=== PATIENT | male | born 1960 | race Caucasian/White ===

== ENCOUNTER 2016-12-22 07:25 | Inpatient (IN) ==
[2016-12-22] MEDS ORDERED: SODIUM CL FOR INHALATION 15 ML NEB NEB ONE (07:39)
[2016-12-22 07:58] LABS: BASOPHILS # (AUTO) 0.05 10*3/UL; BASOPHILS % (AUTO) 0.4 % (0-1); EOSINOPHILS # (AUTO) 0.07 10*3/UL; EOSINOPHILS % (AUTO) 0.6 % (0-8); Hemoglobin [HGB] 16.9 g/dL (14.0-18.0); LYMPHOCYTES # (AUTO) 0.68 10*3/uL; MEAN CORPUSCULAR HEMOGLOBIN 32.1 PG (27-31); MEAN CORPUSCULAR HGB CONC 33.8 g/dL (33-37); MEAN CORPUSCULAR VOLUME 94.9 FL (80-90); MEAN PLATELET VOLUME 9.3 FL (7.4-12.2); MONOCYTES # (AUTO) 0.74 10*3/UL (0.3-0.8); NEUTROPHILS # (AUTO) 10.79 10*3/UL; NEUTROPHILS % (AUTO) 87.2 % (50-80); RED BLOOD COUNT 5.27 10^6/uL (4.70-6.10)
[2016-12-22] MEDS: NORMAL SALINE 10 ML SYRINGE FLUSH IVP PRN ×3 (07:58→09:34)
[2016-12-22 08:05] LABS: BLOOD UREA NITROGEN 7 mg/dL (7-22); BUN/CREATININE RATIO 7.77 (6-20); SERUM ALBUMIN 4.7 g/dL (3.5-4.8)
[2016-12-22 08:09] LABS: MAGNESIUM 1.8 mg/dL (1.6-2.4); PLATELET MORPHOLOGY COMMENT NORMAL MORPHOLOGY (NORM); RBC MORPHOLOGY COMMENT NORMAL MORPHOLOGY (NORM); WBC MORPHOLOGY COMMENT NORMAL MORPHOLOGY (NORM)
[2016-12-22] MEDS ORDERED: Ertapenem Inj 1 GM in Sodium Chloride 0.9% 100 ML IV ONE (08:33)
--- NOTE | 2016-12-22 09:00 | PDOC ---
Dyspnea HPI - General Chief Complaint: Dyspnea Stated Complaint: ACUTE SOB/HEADACHE AND COUGH Date Seen by Provider: 12/22/16 Time Seen by Provider: 07:30 Source: POSITIVE: Patient, Old records Exam Limitations: POSITIVE: No limitations Treatment Prior to Arrival: REPORTS: None Nurse's Notes Reviewed & Considered: Yes - History of Present Illness Initial Comments: The patient is a 56-year-old male. He states that early this morning he was awakened by a cough. He also felt short of breath. Patient took his oxygen saturations and states that he thought it was between 72 and 77%. Past medical history is significant in that patient had a severe pneumonia in 2014 resulting in a large empyema on the left. He was treated at this facility for septic shock with intubation and chest tube drainage of a left empyema. [place] [facility]. He had some type of surgery to the left lung; we are attempting to get [place] [facility] [place]. He required tracheostomy and then a prolonged period of rehabilitation. He states that while in rehabilitation he developed "fluid around the heart" and he states that "they tried to drain it, and punctured my heart ". He has a history of deep venous thrombosis and pulmonary emboli and is on warfarin, probably 10 mg alternated with 5 mg every other day. He also has a history of hypertension and is on medication for this. Patient states he does not smoke but he chews tobacco. He apparently has a oxygen saturation device at home and monitors his oxygen saturation; he states his oxygen saturation normally is between 92 and 94%, and this morning his oxygen saturation as determined by him at home was as above. Patient complains of a headache. He denies any chest pain. No hemoptysis. He does have a productive cough. Body Location Affected: REPORTS: Chest Timing: REPORTS: Upon Awakening Duration: <24 hours Severity: Moderate Quality: REPORTS: "Pain" (Headache, circumferential) Initiating Event: DENIES: Upper Respiratory Illness, Out of Medications, Sports , Exercise, Aspiration, Choking, Allergy, Exposure - Smoke, Exposure - Mold, Exposure - Other Allergen Context: REPORTS: Other (Was awakened from sleep with cough and shortness of breath) Exacerbated By: REPORTS: Exertion, Coughing Associated Symptoms: DENIES: Fever, Chills, Sweating, Chest Pain, Chest Discomfort, Left Chest, Right Chest, Central Chest, Chest Heaviness, Chest Tightness, Painful Breathing, Radiation to Back, Radiation to Jaw, Radiation to Arm, Bloody Cough, Productive Cough, Heart Racing, Leg Pain, Calf Pain, Ankle Swelling, Leg Swelling, Dizziness, Light-Headedness, Anxiety, Tingling - Hands, Tingling - Face, Muscle Spasms - Hands, Muscle Spasms - Feet Similar Symptoms Previously: Yes Recently seen/treated/hospitalized: No Any Prior Injuries Related to Current Complaint?: No - Patient Home Medications Home Medications: Home Medications Warfarin Sodium [Coumadin] 5 mg PO .QOD 09/27/12 Nebivolol HCl [Bystolic] 5 mg PO DAILY tab 11/22/12 Warfarin Sodium 2.5 mg PO .QOD 12/22/16 - Patient Allergies Allergies/Adverse Reactions: Allergies 3 Allergy/AdvReac Type Severity Reaction Status Date / Time Penicillins Allergy NOT Verified 12/22/16 07:37 SURE/LONG TIME AGO Past Medical History - heen HEENT History: Denies History Additional HEENT History: JAMEE D/T PT CONDTION Cardiovascular History: Hypertension, DVTs, Other (please comment) Additional Cardiovasular History: PUNCTURED HEART DURING LUNG PROCEDURE 2014. "I TWICE" Respiratory History: Denies History, Pulmonary Embolism Additional Respiratory History: HOME O2 IN 2015 AFTER EMPYEMA AND TENSION PNEUMO. HX TRACH 2015 Gastrointestinal History: Denies History Additional Gastrointestinal History: EPIGASTRIC PAIN PRIOR TO PE/ DVT. DISCOVERED CLOT BROKE OFF AND WENT TO LUNG AND STOMACH Genitourinary History: Denies History Additional Genitourinary History: JAMEE D/T PT CONDTION Endocrine History: Denies History Additional Endocrine History: JAMEE D/T PT CONDTION Musculoskeletal History: Denies History Prosthesis or Implant: No Additional Musculoskeletal History: JAMEE D/T PT CONDTION Neurological History: Denies History Additional Neurological History: JAMEE D/T PT CONDTION Blood Disorders: Clotting Disorders Additional Blood Disorders History: DVT'S/ PE Psychiatric History: Denies History Additional Psychiatric History: JAMEE D/T PT CONDTION History of Sexually Transmitted Diseases: (JAMEE D/T PT CONDTION) Cancer History: Denies History In Past Year Been Physically Harmed or Verbally Threatened: No History of MDRO: Unknown History of Other Communicable Diseases: (JAMEE D/T PT CONDTION) Tobacco Use: Never Smoker Alcohol Use: Heavy In the Past 12 Months, Have Used or Abuse Any Substance: None Previous Surgical History: Yes Type / Date of Surgery: KNEE Anesthesia Reactions: (JAMEE D/T PT CONDTION) Malignant Hyperthermia: (JAMEE D/T PT CONDTION) Significant Family History: No pertinent family hx Additional Family History: JAMEE D/T PT CONDTION Past Medical History Reviewed: Reviewed - No Changes ROS - Limitations ROS Limitations: No Limitations Constitution: REPORTS: Fever (Possibly; patient did not take his temperature at home) Cardiovascular: REPORTS: Denies Cardiac Symptoms Respiratory: REPORTS: Cough Productive (Of mucoid sputum), Shortness Of Breath Neurological: REPORTS: Denies Neuro Symptoms Gastrointestinal: REPORTS: Denies GI Symptoms Endocrine: REPORTS: Denies Symptoms Musculoskeletal: REPORTS: Denies MS Symptoms Genitourinary: REPORTS: Denies Symptoms Eyes: REPORTS: Denies Symptoms ENT: REPORTS: Denies Symptoms Skin: REPORTS: Denies Skin Symptoms Lympathic: REPORTS: Denies Lympathic Symptoms Immunologic: POSITIVE: Denies Symptoms Psychiatric: POSITIVE: Denies Psych Symptoms Dyspnea Physical Exam - General Appearance General Appearance: REPORTS: Alert, Cooperative, No Acute Distress, No Evidence of Trauma - HEENT HEENT: POSITIVE: Head Inspection Nml, Eyes Inspection Nml, Ears Inspection Nml, Nose Inspection Nml, Oral/Dental Inspect. Nml, Pharynx Inspect. Nml, PERRL, EOMI - Neck Neck: REPORTS: Normal Inspection, No Carotid Bruit - Respiratory Respiratory: REPORTS: No Pleuritic Chest Pain, Speaks Full Sentences, No Pain on Inspiration, Rales (Right lower posterior lung field), Dull on Percussion ( Left lung field, lower), See Diagram. DENIES: No Respiratory Distress, Breath Sounds Normal (Rales right posterior lung field; no breath sounds left lower lung), Respiratory Distress, Fatigue, Wheezes, Rhonchi, Prolonged Expirations, Accessory Muscle Use, Retractions, Splinting, Decreased Air Movement, Chest Wall Tenderness, Speaks Broken Sentences, Stridor, Respiratory Failure - Cardiovascular Cardiovascular: REPORTS: Regular Rate and Rhythm (Sinus tachycardia of 110), Heart Sounds Normal, Equal Pulses, Strong Pulses, No Murmur, No Gallop, No Friction Rub, No JVD, Tachycardia (Sinus tachycardia of 110). DENIES: Irregularly Irreg Rhythm, Bradycardia, Occasional Extrasystoles, Frequent Extrasystoles, JVD Present, S3 Gallop, S4 Gallop, Murmur, Friction Rub, Jeannie' s Crunch Peripheral Pulses: Radial (R): 2+, Radial (L): 2+ - Abdomen Abdomen: Soft: (All Quadrants), Normal Bowel Sounds: (All Quadrants), Denies Tenderness: (All Quadrants), No Splenomegaly: (All Quadrants), No Hepatomegaly: (All Quadrants), No Guarding: (All Quadrants), No Rebound: (All Quadrants), No Palpable Pulse: (All Quadrants), No Palpabale Mass: (All Quadrants), No Distention: (All Quadrants), No Rigidity: (All Quadrants) - Skin Skin: REPORTS: Intact, Normal For Race, Warm, Dry, No Rash - Extremities Extremity: Non-Tender: (All Extremities), Normal ROM: (All Extremities), Normal Inspection: (All Extremities) - Neurological / Psychological Neurological: POSITIVE: Affect Apporpriate, Oriented X3, 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 Chest x-ray shows a right lower and/ or middle lobe pneumonia; there is elevation of the left hemidiaphragm due to previous lung surgery, accounting for absent breath sounds in the left lower lobe. CT a chest shows right pneumonia but no pleural effusions. Lab Results Reviewed by Me: Yes CBC and BMP: 12/22/16 07:30 12/22/16 07:30 EKG Interpreted/Reviewed By Me:: Yes (sinus tachycardia) EKG Interpretation:: POSITIVE: Normal Intervals, Normal [place], Normal QRS, Normal ST/T. NEGATIVE: Normal Sinus Rhythm, Normal Rate (Sinus tachycardia of 110) - Patient's Progress Pain Medication Addressed: POSITIVE: Not Applicable Re-Examine Time: 08:45 Re-Examine Comment: After blood cultures, patient was given Invanz, 1 g IV. Diagnosis was discussed with patient. Arrangements for admission by hospitalist made. Patient maintains oxygen saturations at around 94% on 3 L of supplemental oxygen by nasal cannula. Status: POSITIVE: Unchanged, Re-Examined Air Movement: POSITIVE: Fair Quality Measure Initiative: CAP: POSITIVE: SaO2, VS, Antibiotic(s), BC, CXR or CT - Consult Consult (If Yes, Name of Consulting MD & Time Called): Yes (Dr. Nicole, hospitalist, 8:45 AM) Consulting MD will see pt:: POSITIVE: [facility] Admit Counseled: POSITIVE: Patient, RE: Lab Results, RE: Radiology Results, RE: DX, RE : Need for F/U Patient Care Time - Estimated PCT Patient Care Time (In Minutes): 50 Vital Signs - Recent Vital Signs Vital Signs: Vital Signs (Last 8 hours) Temp Pulse Resp BP Pulse Ox 12/22/16 07:34 99.4 F 134 H 18 159/108 72 - VS Reviewed Vital Signs Reviewed: Yes Discharge Clinical Impression: Pneumonia Discharge Disposition: Admit to Inpatient Condition: Fair Follow Up With: CARLOS SARABIA [Primary Care Provider] - Date Decision to Admit to Inpatient: 12/22/16 Time Decision to Admit to Inpatient: 08:30
[2016-12-22 09:02] LABS: VENOUS PH 7.42 (7.32-7.42)
[2016-12-22] MEDS ORDERED: LIDOCAINE W/ SODIUM BICARB 0.5 ML SYR SUBD PRN (09:54)
[2016-12-22] MEDS ORDERED: IBUPROFEN 600 MG TABLET PO PRN (09:54)
[2016-12-22] MEDS ORDERED: ONDANSETRON 4 MG/2 ML VIAL IVP PRN (09:54)
[2016-12-22] MEDS ORDERED: NORMAL SALINE 10 ML SYRINGE FLUSH IVP PRN (09:54)
[2016-12-22] MEDS: ALBUTEROL SULFATE 2.5 MG/3 ML NEB PRN ×3 (10:51→18:52)
--- NOTE | 2016-12-22 11:21 | EKG ---
[address] [address] Measurements Intervals [place] Rate: 112 P: 80 [place]: 116 QRS: 10 QRSD: 98 T: 53 QT: 305 QTc: 371 Interpretive Statements SINUS TACHYCARDIA WITH SHORT [place] INTERVAL LEFT ATRIAL ENLARGEMENT Compared to ECG 07/18/2014 21:42:32 Short [place] interval now present Atrial abnormality now present Sinus rhythm no longer present Intraventricular conduction delay no longer present T-wave abnormality no longer present Electronically Signed On 12-22-16 16:46:06 MDT by Alonso Villarreal [email or web address]
--- NOTE | 2016-12-22 12:05 | DI ---
CT Head WO Contrast,12/22/2016 7:50 AM: Clinical History: Headache on Coumadin Previous Exam: Jul 18 2014 Findings: Multiple helically acquired CT images are obtained through the brain without contrast, and demonstrat e normal, symmetric ventricles and other CSF containing spaces. There is no mass, hemorrhage or midli ne shift. The surrounding soft tissue and osseous structures are unremarkable. The intraorbital struc tures and paranasal sinuses are unremarkable. Impression: Normal CT head.
--- NOTE | 2016-12-22 12:05 | DI ---
CT CTA Chest Non-Coronary O,12/22/2016 8:10 AM: Clinical History: Shortness of breath. Previous Exam: Jul 18 2014 Findings: Multiple helically acquired CT images are obtained through the chest following a CT angiogram protoco l, and demonstrate a right lower lobe infiltrate which extend slightly into the right middle lobe. Pulmonary arteries are normal without filling defect. There is scarring within the left lung base which is stable from the prior exam. The upper abdomen is unremarkable and not well evaluated. Skeletal structures are within normal limits. There is no significant mediastinal lymphadenopathy. Impression: Right lower lobe and middle lobe pneumonia.
--- NOTE | 2016-12-22 12:05 | DI ---
XR CXR 2VW PA/LAT,12/22/2016 7:46 AM: Clinical History: Cough Previous Exam: November 12, 2014 Findings: PA and lateral views of the chest are obtained, and demonstrate new airspace disease within the right lung base. There is stable irregularity of the left hemidiaphragm. The cardiomediastinum and bony th orax are unremarkable. Impression: New airspace disease within the right lung base consistent with pneumonia. Recommend followup imaging after treatment to document resolution.
--- NOTE | 2016-12-22 13:06 | PDOC ---
HPI - History of Present Illness History of Present Illness: This very nice 56-year-old gentleman who around 4:30 this morning started having some cough checked his oxygen and it was around 70-75% decided to the go to the ER and be seen considering in the past he had a pneumonia resulting in empyema on the left side treated with chest tube. Also has a history of DVT and PE and is on Coumadin. He is subtherapeutic on his INR feels much better at present time Past Medical History Medical History: Pneumonia with empyema, septic shock, pulmonary embolism, chronic anticoagulation with Coumadin Tobacco Use: Never Smoker Do you dip or chew tobacco: Yes In the Past 12 Months, Have Used or Abuse Any of the Following Substance: None Alcohol Use: None Medication / Allergies Home Medications: Home Medications Medication Instructions Recorded Confirmed Type Warfarin Sodium [Coumadin] 5 mg PO .QOD 09/27/12 12/22/16 History Nebivolol HCl [Bystolic] 5 mg PO DAILY tab 11/22/12 12/22/16 History Warfarin Sodium 2.5 mg PO .QOD 12/22/16 12/22/16 History Allergies/Adverse Reactions: Allergies 3 Allergy/AdvReac Type Severity Reaction Status Date / Time Penicillins Allergy NOT Verified 12/22/16 09:57 SURE/LONG TIME AGO Review of Systems - Review of Systems All Systems: Reviewed & No Additional Complaints Except as Stated - Respiratory Respiratory: REPORTS: Cough - Cardiovascular Cardiovascular: DENIES: Negative System Review, Chest Pain, Edema, Syncope, Palpitations, Orthopnea, Paroxysmal Nocturnal Dyspnea, Other, See HPI - Gastrointestinal Gastrointestinal / Abdominal: DENIES: Negative System Review, Nausea, Vomiting, Diarrhea, Constipation, Abdominal Pain, Bloody Stool, Poor Appetite, Heartburn, Regurgitation, Bloating, Lactose Intolerance, Melena, Bright Red Blood per Rectum, Other, See HPI - Musculoskeletal Musculoskeletal: DENIES: Negative System Review, Back Pain, Neck Pain, Joint Swelling, Calf Pain, Muscle Pain, Cramping, Joint Pain - Hands, Joint Pain - Elbows, Joint Pain - Shoulders, Joint Pain - Hips, Joint Pain - Knees, Joint Pain - Feet, AM Stiffness, Other, See HPI Exam - Vitals Vital Signs: Vital Signs Temperature 99.4 F Temperature Source Oral Pulse Rate [Telemetry] 120 Pulse Rate 114 Respiratory Rate 14 Blood Pressure [Left Arm] 131/91 Blood Pressure 116/72 Pulse Ox 96 Oxygen Flow Rate 3 Oxygen Delivery Method Nasal Cannula Height 5 ft 11 in Weight 157 lb 6.4 oz - General General Appearance: No Acute Distress, Cooperative - Eye Eye Exam: POSITIVE: Normal Appearance - Neck Neck Exam: Normal Inspection - Respiratory Respiratory Exam: POSITIVE: Clear to Auscultation - Bilaterally, Breathing Non Labored, Normal To Percussion - Cardiovascular Cardiovascular Exam: POSITIVE: RRR, No Murmur, No Clicks - GI/Abdominal GI/Abdominal Exam: POSITIVE: Normal Bowel Sounds, Non Tender, Non Distended, Soft - Extremities Extremities Exam: POSITIVE: No Clubbing Present, No Edema Present, No Cyanosis Present - Neurological Neurological Exam: POSITIVE: Alert, Oriented x 3, CN II-XII Intact, No Facial Droop - Psychiatric Psychiatric Exam: POSITIVE: Normal Affect, Normal Mood Results - Labs CBC and BMP: 12/22/16 07:30 12/22/16 07:30 Assessment and Plan - Patient Problems (1) Pneumonia Current Visit: Yes Status: Acute Comment: Right lower lobe pneumonia on x-ray we will continue Levaquin 750 IV continue oxygen repeat blood work in the morning Code(s): J18.9 - Pneumonia, unspecified organism (2) Anticoagulation goal of INR 2 to 3 Current Visit: Yes Status: Acute Comment: For history of PE not the therapeutic we'll start Lovenox 1 mg/kg until therapeutic Code(s): Z51.81 - Encounter for therapeutic drug level monitoring; Z79.01 - keno terminal operator (current) use of anticoagulants
[2016-12-22] MEDS: ACETAMINOPHEN 500 MG TABLET PO PRN ×2 (13:11→21:20)
[2016-12-22] MEDS: ENOXAPARIN SODIUM 80 MG/0.8 ML SYRINGE SUBCUT SCH (14:15)
[2016-12-22] MEDS ORDERED: Warfarin 5 MG TAB PO SCH ×2 (21:00)
[2016-12-23] MEDS: ENOXAPARIN SODIUM 80 MG/0.8 ML SYRINGE SUBCUT SCH (01:18)
[2016-12-23] MEDS: ACETAMINOPHEN 500 MG TABLET PO PRN (06:03)
[2016-12-23 06:55] VITALS: BP 147/70; RESP 18; TEMP 98.2
[2016-12-23 07:23] LABS: BASOPHILS # (AUTO) 0.06 10*3/UL; BASOPHILS % (AUTO) 0.6 % (0-1); EOSINOPHILS # (AUTO) 0.09 10*3/UL; EOSINOPHILS % (AUTO) 0.9 % (0-8); Hematocrit [HCT] 40.7 % (42.0-52.0); Hemoglobin [HGB] 13.5 g/dL (14.0-18.0); LYMPHOCYTES # (AUTO) 0.96 10*3/uL; MEAN CORPUSCULAR HEMOGLOBIN 31.8 PG (27-31); MEAN CORPUSCULAR HGB CONC 33.2 g/dL (33-37); MEAN PLATELET VOLUME 8.7 FL (7.4-12.2); MONOCYTES # (AUTO) 0.86 10*3/UL (0.3-0.8); MONOCYTES % (AUTO) 8.7 % (5-15); NEUTROPHILS % (AUTO) 79.8 % (50-80); RED BLOOD COUNT 4.24 10^6/uL (4.70-6.10)
[2016-12-23 07:33] LABS: PLATELET MORPHOLOGY COMMENT NORMAL MORPHOLOGY (NORM); RBC MORPHOLOGY COMMENT NORMAL MORPHOLOGY (NORM); WBC MORPHOLOGY COMMENT NORMAL MORPHOLOGY (NORM)
[2016-12-23] MEDS ORDERED: Levofloxacin (Premix) 750 MG/150 ML PIGGYBACK IV SCH (09:00)
[2016-12-23] MEDS ORDERED: NEBIVOLOL HCL 5 MG TABLET PO SCH (09:00)
[2016-12-23] MEDS ORDERED: Levofloxacin 750 MG / 30 ML VIAL IV SCH (09:00)
--- NOTE | 2016-12-23 10:12 | DCSUMMARY ---
Hospitalization Summary Hospital Course: Final Discharge Diagnosis: Current Visit Problems Problem Status Onset Code Pneumonia Acute J18.9 Anticoagulation goal of INR 2 to 3 Acute Z51.81, Z79.01 Diagnostic Data, Laboratory Data, and Procedures of Signifigance: Laboratory Results 12/22/16 12/22/16 12/22/16 Range/Units 07:30 07:30 07:30 WBC 12.37 H (4.8-10.8) 10^3/uL RBC 5.27 (4.70-6.10) 10^6/uL Hgb 16.9 (14.0-18.0) g/dL Hct 50.0 (42.0-52.0) % MCV 94.9 H (80-90) FL MCH 32.1 H (27-31) PG MCHC 33.8 (33-37) g/dL RDW Std Deviation 51.7 H (39-50) fL RDW Coeff of Stacey 15.0 H (11.5-14.5) % Plt Count 348 (140-350) 10*3/uL MPV 9.3 (7.4-12.2) FL Immature Gran % (Auto) 0.3 (0-5) % Neut % (Auto) 87.2 H (50-80) % Lymph % (Auto) 5.5 L (10-50) % [place] % (Auto) 6.0 (5-15) % Eos % (Auto) 0.6 (0-8) % Baso % (Auto) 0.4 (0-1) % Immature Gran # (Auto) 0.04 10*3/UL Neut # (Auto) 10.79 10*3/UL Lymph # (Auto) 0.68 10*3/uL [place] # (Auto) 0.74 (0.3-0.8) 10*3/UL Eos # (Auto) 0.07 10*3/UL Baso # (Auto) 0.05 10*3/UL WBC Morphology Comment Normal morphology (NORM) Plt Morphology Comment Normal morphology (NORM) RBC Morph Comment Normal morphology (NORM) PT 13.9 H (9.7-11.4) secs INR 1.31 (0.00-5.90) N/A D-Dimer (0.00-0.59) mg/L VBG pH (7.32-7.42) VBG pCO2 (45-55) mmHg VBG HCO3 (22-26) mmol/L VBG Base Excess (-2-2) MMOL/L Sodium (135-145) meq/L Potassium (3.8-5.2) meq/L Chloride (98-112) meq/L Carbon Dioxide (23-33) meq/L Anion Gap (5-20) BUN (7-22) mg/dL Creatinine (0.70-1.50) mg/dL Estimated GFR (>60 ml/min/1.73m(2)) BUN/Creatinine Ratio (6-20) Glucose (78-110) mg/dL Calculated Osmolality (267-292) mOsm/kg Lactic Acid (0.70-2.10) MMOL/L Calcium (8.7-10.7) mg/dL Magnesium 1.8 (1.6-2.4) mg/dL Total Bilirubin (0.3-1.2) mg/dL AST (21-57) IU/L ALT (21-72) IU/L Alkaline Phosphatase (38-126) IU/L C-Reactive Protein < 0.5 (0.0-0.9) mg/dL NT-Pro-B Natriuret Pep 111 (0-125) PG/ML Total Protein (6.1-8.0) g/dL Albumin (3.5-4.8) g/dL Globulin (2.50-4.10) g/dL Albumin/Globulin Ratio (1.3-2.0) mg/g 12/22/16 12/22/16 12/22/16 Range/Units 07:30 07:30 08:53 WBC (4.8-10.8) 10^3/uL RBC (4.70-6.10) 10^6/uL Hgb (14.0-18.0) g/dL Hct (42.0-52.0) % MCV (80-90) FL MCH (27-31) PG MCHC (33-37) g/dL RDW Std Deviation (39-50) fL RDW Coeff of Stacey (11.5-14.5) % Plt Count (140-350) 10*3/uL MPV (7.4-12.2) FL Immature Gran % (Auto) (0-5) % Neut % (Auto) (50-80) % Lymph % (Auto) (10-50) % [place] % (Auto) (5-15) % Eos % (Auto) (0-8) % Baso % (Auto) (0-1) % Immature Gran # (Auto) 10*3/UL Neut # (Auto) 10*3/UL Lymph # (Auto) 10*3/uL [place] # (Auto) (0.3-0.8) 10*3/UL Eos # (Auto) 10*3/UL Baso # (Auto) 10*3/UL WBC Morphology Comment (NORM) Plt Morphology Comment (NORM) RBC Morph Comment (NORM) PT (9.7-11.4) secs INR (0.00-5.90) N/A D-Dimer 2.73 H (0.00-0.59) mg/L VBG pH (7.32-7.42) VBG pCO2 (45-55) mmHg VBG HCO3 (22-26) mmol/L VBG Base Excess (-2-2) MMOL/L Sodium 145 (135-145) meq/L Potassium 4.1 (3.8-5.2) meq/L Chloride 105 (98-112) meq/L Carbon Dioxide 23 (23-33) meq/L Anion Gap 17 (5-20) BUN 7 (7-22) mg/dL Creatinine 0.9 (0.70-1.50) mg/dL Estimated GFR > 60 (>60 ml/min/1.73m(2)) BUN/Creatinine Ratio 7.77 (6-20) Glucose 112 H (78-110) mg/dL Calculated Osmolality 298.0 H (267-292) mOsm/kg Lactic Acid 1.2 (0.70-2.10) MMOL/L Calcium 9.3 (8.7-10.7) mg/dL Magnesium (1.6-2.4) mg/dL Total Bilirubin 0.8 (0.3-1.2) mg/dL AST 37 (21-57) IU/L ALT 24 (21-72) IU/L Alkaline Phosphatase 62 (38-126) IU/L C-Reactive Protein (0.0-0.9) mg/dL NT-Pro-B Natriuret Pep (0-125) PG/ML Total Protein 8.1 H (6.1-8.0) g/dL Albumin 4.7 (3.5-4.8) g/dL Globulin 3.4 (2.50-4.10) g/dL Albumin/Globulin Ratio 1.30 (1.3-2.0) mg/g 12/22/16 12/23/16 Range/Units 08:55 07:15 WBC 9.90 (4.8-10.8) 10^3/uL RBC 4.24 L (4.70-6.10) 10^6/uL Hgb 13.5 L (14.0-18.0) g/dL Hct 40.7 L (42.0-52.0) % MCV 96.0 H (80-90) FL MCH 31.8 H (27-31) PG MCHC 33.2 (33-37) g/dL RDW Std Deviation 50.3 H (39-50) fL RDW Coeff of Stacey 14.7 H (11.5-14.5) % Plt Count 273 (140-350) 10*3/uL MPV 8.7 (7.4-12.2) FL Immature Gran % (Auto) 0.3 (0-5) % Neut % (Auto) 79.8 (50-80) % Lymph % (Auto) 9.7 L (10-50) % [place] % (Auto) 8.7 (5-15) % Eos % (Auto) 0.9 (0-8) % Baso % (Auto) 0.6 (0-1) % Immature Gran # (Auto) 0.03 10*3/UL Neut # (Auto) 7.90 10*3/UL Lymph # (Auto) 0.96 10*3/uL [place] # (Auto) 0.86 H (0.3-0.8) 10*3/UL Eos # (Auto) 0.09 10*3/UL Baso # (Auto) 0.06 10*3/UL WBC Morphology Comment Normal morphology (NORM) Plt Morphology Comment Normal morphology (NORM) RBC Morph Comment Normal morphology (NORM) PT (9.7-11.4) secs INR (0.00-5.90) N/A D-Dimer (0.00-0.59) mg/L VBG pH 7.42 (7.32-7.42) VBG pCO2 32 L (45-55) mmHg VBG HCO3 20 L (22-26) mmol/L VBG Base Excess -4 L (-2-2) MMOL/L Sodium (135-145) meq/L Potassium (3.8-5.2) meq/L Chloride (98-112) meq/L Carbon Dioxide (23-33) meq/L Anion Gap (5-20) BUN (7-22) mg/dL Creatinine (0.70-1.50) mg/dL Estimated GFR (>60 ml/min/1.73m(2)) BUN/Creatinine Ratio (6-20) Glucose (78-110) mg/dL Calculated Osmolality (267-292) mOsm/kg Lactic Acid (0.70-2.10) MMOL/L Calcium (8.7-10.7) mg/dL Magnesium (1.6-2.4) mg/dL Total Bilirubin (0.3-1.2) mg/dL AST (21-57) IU/L ALT (21-72) IU/L Alkaline Phosphatase (38-126) IU/L C-Reactive Protein (0.0-0.9) mg/dL NT-Pro-B Natriuret Pep (0-125) PG/ML Total Protein (6.1-8.0) g/dL Albumin (3.5-4.8) g/dL Globulin (2.50-4.10) g/dL Albumin/Globulin Ratio (1.3-2.0) mg/g History and Physical pertinent to Admission: Course of Hospitalization: This very nice 56-year-old gentleman with past medical history of previous DVT on Coumadin not therapeutic he has not been checking his INR at all lately. We discussed the new anticoagulation medication he said he always wanted to use one of these but didn't get much information from his primary care physician we talked at length about Eliquis where I told him he would not have to check his INR daily with this medication but there are no count or measures if he would have a bleed he totally understands and will like to start this medication because he feels he is not anticoagulated as it is any is a strong family history and he would not like to get another blood clot and pulmonary embolus as well considering his lung tissue with empyema. Comes in with pneumonia white count is resolved he was walked around the hallways and is sats are 92% on room air cough is resolved patient is hemodynamically stable and is improved from his pneumonia he will be discharged home in stable and improved condition he will call himself to make an appointment was primary care physician since he is deciding if the to look for a new primary care physician at this time. We have arranged for the patient and to be followed by the Coumadin clinic at the [facility] for his INRs until he can get into his primary care physician Dr. Ruiz he is unable to afford to Eliquis he still wants to go home he does understand he is not therapeutic have offered him to have Lovenox subcutaneous twice a day he knows to risk of developing a DVT and a pulmonary embolus embolus which could result in she said he will take his Coumadin called Simin the nurse but would still like to go home. On the date of discharge, the patient was examined: Gen.: No acute distress, alert, nontoxic Heart: Regular rate and rhythm, no murmurs, clicks, gallops, or rubs Lungs: Clear to auscultation bilaterally, breathing is nonlabored Abdomen/GI: Normal tones on auscultation, soft, nontender, nondistended Musculoskeletal/extremities: No clubbing, cyanosis, or edema Vitals reviewed and are listed below Vital Signs (24 hrs) Temp Pulse Pulse Resp BP BP Pulse Ox 12/23/16 11:00 94 12/23/16 07:01 18 12/23/16 06:54 98.2 F 63 18 147/70 98 12/23/16 05:45 95 12/23/16 05:00 97.7 F 71 20 141/98 100 12/23/16 03:00 69 100 12/23/16 00:10 99.2 F 77 18 143/89 100 12/22/16 23:00 79 100 12/22/16 20:15 99.2 F 85 16 120/73 98 12/22/16 19:35 16 12/22/16 19:32 98 12/22/16 19:07 88 12/22/16 18:53 95 17 12/22/16 18:52 92 16 12/22/16 16:39 98.8 F 85 20 110/68 99 12/22/16 15:00 93 99 12/22/16 14:33 96 16 12/22/16 14:32 94 16 12/22/16 13:00 99.2 F 96 16 115/71 98 Assessment and Plan: 1. As per discharge assessments above 2. Disposition: Home 3. Condition on discharge, stable and improved. 4. Diet: regular diet 5. Activities: resume normal activities 6. Follow-Up: 1. PCP 2. 7. Medications at the Time of Discharge: Home Medications Medication Instructions Recorded Confirmed Type Nebivolol HCl [Bystolic] 5 mg PO DAILY tab 11/22/12 12/22/16 History Albuterol Neb Soln 0.083% 2.5 mg NEB RTQID PRN vial.neb 12/23/16 Rx Apixaban [Eliquis] 2.5 mg PO BID #60 tab 12/23/16 Rx Levofloxacin Tab [Levaquin Tab] 750 mg PO DAILY #5 tab 12/23/16 Rx 3 Generic Name Dose Route Start Last Admin Trade Name Freq PRN Reason Stop Dose Admin Acetaminophen 500 mg 12/22/16 09:54 12/23/16 06:03 Tylenol PO 500 mg Q4H PRN Administration Pain or fever Albuterol Sulfate 2.5 mg 12/22/16 09:54 12/22/16 18:52 Albuterol Neb Soln 0.083% NEB 2.5 mg RTQID PRN Administration Shortness of Breath Apixaban 2.5 mg 12/23/16 21:00 Eliquis PO BID JIN Potassium Chloride/Sodium Chloride 1,000 mls @ 125 mls/hr 12/22/16 09:54 03:50 Pot Chl 20meq + Ns PRIMARY IV 125 mls/hr .Q8H JIN Administration Sodium Chloride 25 mls @ 200 mls/hr 12/22/16 09:54 Normal Saline 0.9% IV .Post Infusion PRN No Primary IV for Flush ONLY Levofloxacin/Dextrose 750 mg in 150 mls @ 100 mls/hr 12/23/16 09:00 12/23/16 09:41 Levaquin (Premix) IV 100 mls/hr Q24H JIN Administration Ibuprofen 600 mg 12/22/16 09:54 Motrin PO Q6H PRN Pain Lidocaine HCl 0.5 ml 12/22/16 09:54 Lidocaine Buffered Inj SUBD ONCE PRN IV Starts Nebivolol 5 mg 12/23/16 09:00 12/23/16 09:41 Bystolic PO 5 mg DAILY JIN Administration Ondansetron HCl 4 mg 12/22/16 09:54 Zofran Inj IVP Q4H PRN NAUSEA / VOMITING Sodium Chloride 5 - 20 ml 12/22/16 09:54 Saline Flush IVP BID PRN Flush 8. Time, care, counseling and coordination of care for this discharge is greater than 30 minutes. Exam - Vitals Vital Signs: Vital Signs Temperature 98.2 F Temperature Source Oral Pulse Rate [Telemetry] 63 Pulse Rate 69 Respiratory Rate 18 Blood Pressure [Right Arm] 147/70 Blood Pressure [Left Arm] 120/73 Blood Pressure 116/72 Pulse Ox 98 Oxygen Flow Rate 3 Oxygen Delivery Method Room Air Height 5 ft 11 in Weight 157 lb 6.4 oz Patient Problems - Patient Problem List (1) Pneumonia Current Visit: Yes Status: Acute Code(s): J18.9 - Pneumonia, unspecified organism Category: Medical (2) Anticoagulation goal of INR 2 to 3 Current Visit: Yes Status: Acute Code(s): Z51.81 - Encounter for therapeutic drug level monitoring; Z79.01 - shelter (current) use of anticoagulants Category: Medical
[2016-12-23 11:12] VITALS: O2SAT 94
[2016-12-23] MEDS ORDERED: Warfarin Tab 2.5 MG TAB PO SCH (21:00)
[2016-12-23] MEDS ORDERED: Apixaban Tab 2.5 MG TABLET PO SCH (21:00)
== END 2016-12-23 14:50 | disposition home or self-care (01) | DRG 195 ==
LOC: ER 07:25 → MED/SURG 08:56
PROVIDERS: ADMIT Internal Medicine; ATTEND Internal Medicine